=== PATIENT | female | born 1980 | race Two or more races ===

== ENCOUNTER 2017-10-16 18:13 | Emergency (ER) | payer OTHER ==
[2017-10-16 18:22] VITALS: BP 139/79; PULSE 109; TEMP 98.6; BMI 31.9
[2017-10-16] MEDS ORDERED: predniSONE 20 MG TABLET (UD) PO ONE (18:47)
[2017-10-16] MEDS ORDERED: ALBUTEROL SO4 2.5/IPRATROPIUM 0.5 INH SOL 3 ML VIAL.NEB. NEB ONE ×3 (18:47→18:54)
[2017-10-16] MEDS ORDERED: predniSONE 20 MG TABLET (UD) ONE (18:48)
--- NOTE | 2017-10-16 18:54 | PDOC ---
History of Present Illness - General Chief Complaint: Cold Symptoms Stated Complaint: COUGHING Time Seen by Provider: 10/16/17 18:30 History Source: Patient Exam Limitations: No Limitations - History of Present Illness Initial Comments: 10/16/17 19:00 Patient came for another evaluation of persistent cough, postnasal drainage, some intermittent wheezing. Was seen by PMD 4 days ago and prescribed multiple medications including Augmentin which she has taken every day but today, which she also has taken every day, also Flovent nasal spray and Tessalon Perles which she has not found to be helpful. Patient denies fever but states cough seems to be worsening and is keeping her awake at night. States suffers from seasonal ALLERGIES and is season has been the worst. Timing/Duration: reports: getting worse Severity: reports: mild, moderate Associated Symptoms: reports: denies symptoms, earache, facial pain, fever/ chills, nasal congestion Past History - Travel Traveled outside of the country in the last 30 days: No Close contact w/someone who was outside of country & ill: No - Past Medical History Allergies/Adverse Reactions: Allergies Allergy/AdvReac Type Severity Reaction Status Date / Time No Known Allergies Allergy Verified 10/16/17 18:17 Home Medications: Ambulatory Orders Albuterol 0.083% Nebulizer Amy [Ventolin 0.083% Nebulizer Soln -] 1 neb NEB Q4H PRN #30 vial 10/16/17 Amoxicillin/Potassium Clav [Augmentin 875-125 Tablet] 1 each PO ASDIR 10/16/17 Benzonatate [Tessalon Pearls -] 100 mg PO TID 10/16/17 Fluticasone Propionate [Allergy Relief] 15.8 ml NS ASDIR 10/16/17 Loratadine [Claritin -] 10 mg PO DAILY 10/16/17 predniSONE [Deltasone -] 20 mg PO BID #8 tablet 10/16/17 COPD: No Other medical history: DENIES. - Suicide/Smoking/Psychosocial Hx Smoking History: Never smoked Respiratory Specific PMHX - Complaint Specific PMHX Bronchitis: No Pneumonia: No Review of Systems - Review of Systems Able to Perform ROS?: Yes Is the patient limited Kiswahili proficient: Yes Constitutional: Yes: Symptoms Reported, See HPI, Malaise. No: Fever HEENTM: Yes: Symptoms Reported, See HPI, Nose Congestion Respiratory: Yes: Symptoms reported, See HPI, Cough, Wheezing ABD/GI: No: Symptoms Reported Integumentary: Yes: Symptoms Reported, See HPI Neurological: No: Symptoms reported All Other Systems: Reviewed and Negative *Physical Exam - Vital Signs Last Vital Signs Temp Pulse Resp BP Pulse Ox 98.6 F 109 H 17 139/79 99 10/16/17 18:17 10/16/17 18:17 10/16/17 18:17 10/16/17 18:17 10/16/17 18:17 - Physical Exam General Appearance: Yes: Nourished, Appropriately Dressed, Apparent Distress, Mild Distress HEENT: positive: ELAINA, Normal ENT Inspection, TMs Normal, Nasal Congestion, Rhinorrhea Neck: positive: Supple, Lymphadenopathy (R). negative: Tender Respiratory/Chest: positive: Lungs Clear, Wheezing (wet cough ). negative: Respiratory Distress Gastrointestinal/Abdominal: positive: Soft. negative: Tender Musculoskeletal: positive: Normal Inspection Extremity: positive: Normal Capillary Refill, Normal Inspection Integumentary: positive: Normal Color, Dry, Warm Neurologic: positive: police matron II-XII NML intact, Fully Oriented, Alert, Normal Mood/ Affect, Normal Response, Motor Strength 5/5 Progress Note - Progress Note Progress Note: ALLERGIC rhinitis with reactive airway. Improved after DuoNeb and prednisone added to regime. Will follow-up with PMD this week *DC/Admit/Observation/Transfer Diagnosis at time of Disposition: Allergic rhinitis Qualifiers: Allergic rhinitis trigger: pollen Allergic rhinitis seasonality: seasonal Qualified Code(s): J30.1 - Allergic rhinitis due to pollen - Discharge Dispostion Disposition: HOME Condition at time of disposition: Stable Decision to Admit order: No - Prescriptions Prescriptions: Albuterol 0.083% Nebulizer Amy [Ventolin 0.083% Nebulizer Soln -] 1 neb NEB Q4H PRN #30 vial PRN Reason: Cough predniSONE [Deltasone -] 20 mg PO BID #8 tablet - Referrals Referrals: Katerina Capone MD [Primary Care Provider] - - Patient Instructions Printed Discharge Instructions: DI for Viral Upper Respiratory Infection-Child Additional Instructions: Rest, drink lots of fluids: Teas, water, soups, Pedialyte Saltwater gargles Steamy showers/seem to face break up mucus Avoid contact with others until fevers and cough resolved Lots of handwashing and good hygiene Continue [id number] medications for symptomatic relief Tylenol or Motrin for fever and pain Continue albuterol nebulizers every 4-6 hours for the next 2 days then as needed for continued cough Prednisone as directed until completed Followup with private physician in one to 2 days Return to emergency department / pediatric hospital for worsened symptoms, fevers, dehydration - Post Discharge Activity Forms/Work/School Notes: Back to Work
== END 2017-10-16 19:47 | disposition home or self-care (01) ==
LOC: JERFT 18:13
PROC: 3E0F7GC Introduction of Other Therapeutic Substance into Respiratory Tract, Via Natural or Artificial Opening (ICD-10-PCS; principal; 2017-10-16)
PROC: 3E0F7GC Introduction of Other Therapeutic Substance into Respiratory Tract, Via Natural or Artificial Opening (ICD-10-PCS; 2017-10-16)
DX: J30.1 Allergic rhinitis due to pollen (principal)
CPT/HCPCS: 94640; 99281-25; J7620

== ENCOUNTER 2018-06-15 21:43 | Emergency (ER) | payer OTHER ==
[2018-06-15] MEDS ORDERED: DIPHTH,PERTUSS(ACELL),TET 0.5 ML DISP.SYRIN IM ONE ×2 (21:53→22:13)
--- NOTE | 2018-06-15 21:53 | PDOC ---
Rapid Medical Evaluation Time Seen by Provider: 06/15/18 21:50 Medical Evaluation: Allergies Allergy/AdvReac Type Severity Reaction Status Date / Time No Known Allergies Allergy Verified 10/16/17 18:17 06/15/18 21:50 pt c/o: cut from glass bottle in her garbage unknown last tdap Pt on brief exam: 3cm lac to rt 1st digit palmar side and dip joint , from of finger distal of lac Pt ordered for: tdap pt to proceed to the ED 06/15/18 21:52 Discharge Disposition - Diagnosis Finger laceration - Referrals Referrals: Katerina Capone MD [Primary Care Provider] - - Patient Instructions - Post Discharge Activity
[2018-06-15 21:55] VITALS: BP 120/81; PULSE 89; TEMP 98.3; BMI 27.9
--- NOTE | 2018-06-15 22:34 | PDOC ---
History of Present Illness - General Chief Complaint: Laceration Stated Complaint: LACERATION Time Seen by Provider: 06/15/18 21:50 History Source: Patient Exam Limitations: No Limitations - History of Present Illness Initial Comments: 06/15/18 22:29 HISTORY OF PRESENT ILLNESS: This is a 37-year-old woman denies medical history presents emergency department for evaluation of laceration to her right index finger sustained while throwing away a bag of garbage. Patient states it was a broken Serna bottle which sliced through the bag and lacerating her right index finger on the palmar surface. Patient applied a dressing to the wounds and then came to the emergency department for immediate evaluation. Patient is right-hand dominant. No recent travel or sick contacts. PAST MEDICAL HISTORY: Denies past medical history SURGICAL HISTORY: Denies ALLERGIES: No known drug allergies REVIEW OF SYSTEMS General/Constitutional: Denies fever or chills. Denies weakness, weight change. HEENT: Denies change in vision. Denies ear pain or discharge. Denies sore throat. Cardiovascular: Denies chest pain or shortness of breath. Respiratory: Denies cough, wheezing, or hemoptysis. Gastrointestinal: Denies nausea, vomiting, diarrhea or constipation. Denies rectal bleeding. Genitourinary: Denies dysuria, frequency, or change in urination. Musculoskeletal: Denies joint or muscle swelling or pain. Denies neck or back pain. Skin and breasts: LAceration to right index finger. Neurologic: Denies headache, vertigo, loss of consciousness, or loss of sensation. Psychiatric: Denies depression or anxiety. Endocrine: Denies increased thirst. Denies abnormal weight change. Hematologic/Lymphatic: Denies anemia, easy bleeding, or history of blood clots. Allergic/Immunologic: Denies hives or skin allergy. Denies latex allergy. PHYSICAL EXAM General Appearance: Well-appearing, appropriately dressed. No apparent distress , no intoxication. Musculoskeletal/Extremities: Normal inspection. FAROM of all extremities, normal capillary refill. Pelvis Stable. No CVA tenderness. No tenderness to extremities, pedal edema, swelling, erythema or deformity. Integumentary: 3 cm laceration to the palmar aspect of the right index finger over the DIP. Cap refill<2 seconds. NVI Neurologic: inseam leveler II-XII intact. Fully oriented, alert. Appropriate mood/affect. Motor strength 5/5. No appreciable EOM palsy, facial droop or sensory deficit. Past History - Past Medical History Allergies/Adverse Reactions: Allergies Allergy/AdvReac Type Severity Reaction Status Date / Time No Known Allergies Allergy Verified 10/16/17 18:17 Home Medications: Ambulatory Orders NK [No Known Home Medication] 06/15/18 COPD: No - Suicide/Smoking/Psychosocial Hx Smoking History: Never smoked Have you smoked in the past 12 months: No Information on smoking cessation initiated: No *Physical Exam - Vital Signs Last Vital Signs Temp Pulse Resp BP Pulse Ox 98.3 F 89 18 120/81 100 06/15/18 21:53 06/15/18 21:53 06/15/18 21:53 06/15/18 21:53 06/15/18 21:53 Moderate Sedation - Procedure Monitoring Vital Signs: Procedure Monitoring Vital Signs Temperature 98.3 F 06/15/18 21:53 Pulse Rate 89 06/15/18 21:53 Respiratory Rate 18 06/15/18 21:53 Blood Pressure 120/81 06/15/18 21:53 O2 Sat by Pulse Oximetry (%) 100 06/15/18 21:53 Procedures - Consent Consent obtained: Verbal, From Patient - Laceration/Wound Repair Right Volar 1st digit Wound Length: 2.6 to 5.0 cm Wound Explored: clean Wound's Depth, Shape: superficial Irrigated w/ Saline: Yes Betadine Prep: Yes Anesthesia: 1% Lidocaine Amount of Anesthetic (ccs): 3 Wound Debrided: minimal Wound Repaired With: Sutures Suture Size/Type: 5:0 Number of Sutures: 6 Layer Closure: No Sterile Dressing Applied: Yes Splint Applied: Yes Sling Applied: No Progress: 06/15/18 22:37 pt tolerated well ED Treatment Course - RADIOLOGY Radiology Studies Ordered: Category Date Time Status FINGER(S) RIGHT [RAD] Stat Radiology 06/15/18 22:29 Ordered - Medications Given in the ED: ED Medications Discontinued Medications Generic Name Dose Route Start Last Admin Trade Name Freq PRN Reason Stop Dose Admin Diphtheria/Tetanus/Acell Pertussis 0.5 ml 06/15/18 21:53 06/15/18 22:17 Boostrix - IM 06/15/18 21:54 0.5 ml .ONCE ONE Administration Medical Decision Making - Medical Decision Making 06/15/18 22:29 A/P: 37-year-old woman with laceration to index finger of the right hand 3 cm linear laceration present to the palmar aspects of the DIP of the right index finger X-rays to rule out foreign body Tetanus booster Laceration repair-see procedure note for details Discharge home 06/15/18 23:04 X-rays as read by me: No foreign body present. *DC/Admit/Observation/Transfer Diagnosis at time of Disposition: Finger laceration Qualifiers: Encounter type: initial encounter Finger: index finger Damage to nail status: without damage Foreign body presence: without foreign body Laterality: right Qualified Code(s): S61.210A - Laceration without foreign body of right index finger without damage to nail, initial encounter - Discharge Dispostion Disposition: HOME Condition at time of disposition: Stable Decision to Admit order: No - Referrals Referrals: Katerina Capone MD [Primary Care Provider] - - Patient Instructions Printed Discharge Instructions: DI for Laceration Repair Additional Instructions: Keep wound clean and dry Avoid strenuous activity/exercise to create a hot or sweaty environment until sutures are removed Reapply bacitracin ointment 2 times a day until sutures are removed Return to emergency Department or private physician in 7-10 days for suture removal May use Tylenol or Motrin for pain relief Return immediately to emergency department for redness, swelling, pain, or signs of infection - Post Discharge Activity
== END 2018-06-15 23:04 | disposition home or self-care (01) ==
LOC: JERFT 21:43
PROC: 3E0234Z Introduction of Serum, Toxoid and Vaccine into Muscle, Percutaneous Approach (ICD-10-PCS; principal; 2018-06-15)
PROC: 0HQFXZZ Repair Right Hand Skin, External Approach (ICD-10-PCS; 2018-06-15)
DX: S61.210A Laceration without foreign body of right index finger without damage to nail, initial encounter (principal); W25.XXXA Contact with sharp glass, initial encounter; Y93.E9 Activity, other interior property and clothing maintenance; Y92.038 Other place in apartment as the place of occurrence of the external cause; Y99.8 Other external cause status
CPT/HCPCS: 12002-25; 73140-TC-RT-FY; 90471; 90715; 99282-25

== ENCOUNTER 2018-06-24 09:49 | Emergency (ER) | payer OTHER ==
[2018-06-24 09:58] VITALS: BP 136/54; PULSE 78; TEMP 98.6; BMI 27.9
--- NOTE | 2018-06-24 10:13 | PDOC ---
Suture Removal/Wound Check HPI - History of Present Illness Chief Complaint: Suture/Staple Removal(Here) Stated Complaint: SUTURE REMOVAL Time Seen by Provider: 06/24/18 10:11 History Source: Yes: Patient Exam Limitations: Yes: No Limitations Treated at: [facility] - Previous ED Treatment Type of procedure performed on last visit: Yes: Laceration Repair Past History - Past Medical History Allergies/Adverse Reactions: Allergies Allergy/AdvReac Type Severity Reaction Status Date / Time No Known Allergies Allergy Verified 06/24/18 09:56 Home Medications: Ambulatory Orders NK [No Known Home Medication] 06/15/18 COPD: No - Immunization History Immunization Up to Date: Yes - Suicide/Smoking/Psychosocial Hx Smoking History: Never smoked Have you smoked in the past 12 months: No Hx Alcohol Use: No Drug/Substance Use Hx: No Suture Removal/Wound Check PE - Physical Exam Laceration/Wound Check Symptoms: reports: None Current Severity Level: None Maximum Severity Level: None Pain Localization: None *Physical Exam - Vital Signs Last Vital Signs Temp Pulse Resp BP Pulse Ox 98.6 F 78 16 136/54 L 100 06/24/18 09:51 06/24/18 09:51 06/24/18 09:51 06/24/18 09:51 06/24/18 09:51 - Physical Exam General Appearance: Yes: Nourished, Appropriately Dressed. No: Apparent Distress Neck: negative: Tender Musculoskeletal: positive: Normal Inspection (well approximated wound to the palmar aspect of right index finger distal phalanx. Range of motion is limited secondary to stiffness but able to flex and extend at the DIP.) Extremity: positive: Normal Capillary Refill, Normal Inspection. negative: Normal Range of Motion Moderate Sedation - Procedure Monitoring Vital Signs: Procedure Monitoring Vital Signs Temperature 98.6 F 06/24/18 09:51 Pulse Rate 78 06/24/18 09:51 Respiratory Rate 16 06/24/18 09:51 Blood Pressure 136/54 L 06/24/18 09:51 O2 Sat by Pulse Oximetry (%) 100 06/24/18 09:51 Medical Decision Making - Medical Decision Making 06/24/18 12:09 5 sutures removed from wound. Steri-Strips applied patient tolerated procedure well *DC/Admit/Observation/Transfer Diagnosis at time of Disposition: Encounter for removal of sutures - Discharge Dispostion Disposition: HOME Condition at time of disposition: Stable Decision to Admit order: No - Referrals Referrals: Katerina Capone MD [Primary Care Provider] - - Patient Instructions Printed Discharge Instructions: DI for Suture Removal Additional Instructions: Rest, avoid strenuous activity or exercise until scabbing is completely resolved May use bacitracin ointment until scabbing is gone After may use vitamin E oil, poke hole in vitamin E capsule and use oil from the capsule on wound- may help resolve some of the discoloration of the scar Keep wound out of the sun for at least one year to avoid darkening of scar tissue - Post Discharge Activity Forms/Work/School Notes: Back to Work
== END 2018-06-24 10:15 | disposition home or self-care (01) ==
LOC: JERFT 09:49
DX: Z48.817 Encounter for surgical aftercare following surgery on the skin and subcutaneous tissue (principal); Z48.02 Encounter for removal of sutures
CPT/HCPCS: 99281-25

== ENCOUNTER 2018-07-08 10:02 | Emergency (ER) | payer OTHER ==
[2018-07-08 10:16] VITALS: BP 119/63; PULSE 95; TEMP 98.2; BMI 27.9
--- NOTE | 2018-07-08 10:55 | PDOC ---
History of Present Illness - General Chief Complaint: Cold Symptoms Stated Complaint: COUGH Time Seen by Provider: 07/08/18 10:29 History Source: Patient, Parent(s) Exam Limitations: No Limitations - History of Present Illness Initial Comments: 07/08/18 came to emergency department with acute onset of fevers, chills, headaches/primarily sinus, runny nose and sore throat pain since yesterday. Has used ibuprofen and [id number] medications with minimal resolved. 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 Timing/Duration: reports: getting worse Severity: reports: mild, moderate Modifying Factors: improves with: activity, coughing Associated Symptoms: reports: cough, earache, facial pain, muscle aches, nasal congestion, nasal drainage, sore throat Past History - Travel Traveled outside of the country in the last 30 days: No Close contact w/someone who was outside of country & ill: No - Past Medical History Allergies/Adverse Reactions: Allergies Allergy/AdvReac Type Severity Reaction Status Date / Time No Known Allergies Allergy Verified 06/24/18 09:56 Home Medications: Ambulatory Orders Ibuprofen 200 mg PO Q6H PRN #30 capsule 07/08/18 Oseltamivir Phosphate [Tamiflu -] 75 mg PO BID #10 capsule 07/08/18 COPD: No - Immunization History Immunization Up to Date: Yes - Suicide/Smoking/Psychosocial Hx Smoking History: Never smoked Have you smoked in the past 12 months: No Hx Alcohol Use: No Drug/Substance Use Hx: No Respiratory Specific PMHX - Complaint Specific PMHX Bronchitis: No Pneumonia: No Review of Systems - Review of Systems Able to Perform ROS?: Yes Is the patient limited Beninese proficient: Yes Constitutional: Yes: Symptoms Reported, See HPI, Fever, Malaise, Weakness HEENTM: Yes: Symptoms Reported, See HPI, Nose Congestion, Throat Pain Respiratory: Yes: Symptoms reported, See HPI, Cough. No: Wheezing Musculoskeletal: Yes: Symptoms Reported, See HPI, Joint Pain, Muscle Weakness All Other Systems: Reviewed and Negative *Physical Exam - Vital Signs Last Vital Signs Temp Pulse Resp BP Pulse Ox 98.2 F 95 H 18 119/63 98 07/08/18 10:15 07/08/18 10:15 07/08/18 10:15 07/08/18 10:15 07/08/18 10:15 - Physical Exam Comments: 07/08/18 18:30 GENERAL: [The child is awake, alert, and appropriately interactive.] EYES: [The pupils are equal, round, and reactive to light, with clear, conjunctiva.but glassy] NOSE: [The nose with clear drainage EARS: [The ear canals and tympanic membranes are congested but landmarks easily visualed ] THROAT: [The oropharynx is clear with erythema, no exudates. The mucous membranes are moist.] NECK: [The neck is supple with mildly tender adenopathy, no menigemous] CHEST: [The lungs are coarse but clear without crackles, or wheezes.] HEART: [Heart is regular rhythm, with normal S1 and S2, no murmurs.] ABDOMEN: [The abdomen is soft and nontender with normal bowel sounds. There is no organomegaly and no mass. There is no guarding or rebound.] EXTREMITIES: [Extremities are normal.] NEURO: [Behavior is normal for age.cranky but easily,m Tone is normal.] SKIN: [Skin is unremarkable without rash or swelling. There is no bruising, and there are no other signs of injury.] Moderate Sedation - Procedure Monitoring Vital Signs: Procedure Monitoring Vital Signs Temperature 98.2 F 07/08/18 10:15 Pulse Rate 95 H 07/08/18 10:15 Respiratory Rate 18 07/08/18 10:15 Blood Pressure 119/63 07/08/18 10:15 O2 Sat by Pulse Oximetry (%) 98 07/08/18 10:15 Progress Note - Progress Note Progress Note: Clinically evident consistent with influenza illness, will treat with Tamiflu *DC/Admit/Observation/Transfer Diagnosis at time of Disposition: Influenzal acute upper respiratory infection - Discharge Dispostion Disposition: HOME Condition at time of disposition: Stable Decision to Admit order: No - Prescriptions Prescriptions: Ibuprofen 200 mg PO Q6H PRN #30 capsule PRN Reason: PAIN AND FEVERS Oseltamivir Phosphate [Tamiflu -] 75 mg PO BID #10 capsule - Referrals Referrals: Katerina Capone MD [Primary Care Provider] - - Patient Instructions Printed Discharge Instructions: DI for Viral Upper Respiratory Infection -- Adult Additional Instructions: Rest, drink lots of fluids: Teas, water, soups, Pedialyte Saltwater gargles Steamy showers/seem to face break up mucus Old-fashioned treatments help! Avoid contact with others until fevers and cough resolved as this is very contagious Lots of handwashing and good hygiene Continue [id number] medications for symptomatic relief Tylenol or Motrin for fever and pain Take all of Tamiflu as directed: 1 tab every 12 hours for 5 days Followup with private physician in one to 2 days as needed or if worsening Return to emergency department for worsened symptoms, fevers, dehydration Influenza takes between 5 and 7 days for resolution To not participate in any activity, work, or school until fevers and cough are gone for at least one day - Post Discharge Activity Forms/Work/School Notes: Back to Work, Back to School
== END 2018-07-08 11:06 | disposition home or self-care (01) ==
LOC: JERFT 10:02
DX: J11.1 Influenza due to unidentified influenza virus with other respiratory manifestations (principal)
CPT/HCPCS: 99281-25

== ENCOUNTER 2018-08-16 12:00 | Emergency (ER) | payer OTHER ==
[2018-08-16 12:10] VITALS: BP 142/76; PULSE 117; TEMP 99.8; BMI 27.9
[2018-08-16] MEDS ORDERED: ACETAMINOPHEN 500 MG TABLET (FP) PO ONE (12:41)
--- NOTE | 2018-08-16 12:42 | PDOC ---
History of Present Illness - General Chief Complaint: Sore Throat Stated Complaint: FEVER/ COUGHING/BODYACHE Time Seen by Provider: 08/16/18 12:34 - History of Present Illness Initial Comments: 08/16/18 12:42 37-year-old female presents for evaluation of fever chills night sweats nasal congestion and cough 2 days Past History - Past Medical History Allergies/Adverse Reactions: Allergies Allergy/AdvReac Type Severity Reaction Status Date / Time No Known Allergies Allergy Verified 08/16/18 12:08 Home Medications: Ambulatory Orders Oseltamivir Phosphate [Tamiflu] 75 mg PO BID #10 capsule 08/16/18 COPD: No - Immunization History Immunization Up to Date: Yes - Suicide/Smoking/Psychosocial Hx Smoking History: Never smoked Have you smoked in the past 12 months: No Hx Alcohol Use: No Drug/Substance Use Hx: No Review of Systems - Review of Systems Constitutional: Yes: See HPI, Chills, Fever, Malaise, Night Sweats HEENTM: Yes: Nose Congestion Respiratory: Yes: Cough *Physical Exam - Vital Signs Last Vital Signs Temp Pulse Resp BP Pulse Ox 99.8 F H 117 H 18 142/76 98 08/16/18 12:08 08/16/18 12:08 08/16/18 12:08 08/16/18 12:08 08/16/18 12:08 - Physical Exam Comments: 08/16/18 12:42 HEAD: NC/AT EYES: Conjuntiva clear Ears: Canals and TM's normal NOSE: No d/c THROAT: Moist mucous membrances, oral pharanx clear, uvula midline NECK: Supple without adenopathy CARDIAC: S1 S2 LUNGS: CTA Full and Equal breath sounds ABDOMEN: Soft NT ND MS: Full ROM in all joints without edema NEUROLOGIC: No gross sensory or motor deficits, NVID SKIN: Normal color and temperature no lesions or rashes Moderate Sedation - Procedure Monitoring Vital Signs: Procedure Monitoring Vital Signs Temperature 99.8 F H 08/16/18 12:08 Pulse Rate 117 H 08/16/18 12:08 Respiratory Rate 18 08/16/18 12:08 Blood Pressure 142/76 08/16/18 12:08 O2 Sat by Pulse Oximetry (%) 98 08/16/18 12:08 Medical Decision Making - Medical Decision Making 08/16/18 13:14 Will treat her for flu. *DC/Admit/Observation/Transfer Diagnosis at time of Disposition: Influenzal acute upper respiratory infection - Discharge Dispostion Disposition: HOME Condition at time of disposition: Stable Decision to Admit order: No - Referrals - Patient Instructions Printed Discharge Instructions: Influenza Additional Instructions: Please take the Tamiflu as directed. Tylenol Motrin as directed for pain and fever. Return to the emergency room for worsening symptoms and follow-up with your primary care physician in one to 2 days for further evaluation and treatment options. - Post Discharge Activity
== END 2018-08-16 13:25 | disposition home or self-care (01) ==
LOC: JERFT 12:00
DX: J11.1 Influenza due to unidentified influenza virus with other respiratory manifestations (principal)
CPT/HCPCS: 87804; 99281-25

== ENCOUNTER 2019-07-08 12:11 | Emergency (ER) | payer OTHER ==
[2019-07-08 12:23] VITALS: BP 131/81; PULSE 102; TEMP 99.1; BMI 29.6
--- NOTE | 2019-07-08 12:43 | PDOC ---
History of Present Illness - General Chief Complaint: Sore Throat Stated Complaint: COLD SYMPTOMS Time Seen by Provider: 07/08/19 12:23 History Source: Patient Exam Limitations: No Limitations Past History - Past Medical History Allergies/Adverse Reactions: Allergies Allergy/AdvReac Type Severity Reaction Status Date / Time No Known Allergies Allergy Verified 07/08/19 12:23 Home Medications: Ambulatory Orders NK [No Known Home Medication] 07/08/19 COPD: No - Immunization History Immunization Up to Date: Yes - Psycho Social/Smoking Cessation Hx Smoking History: Never smoked Have you smoked in the past 12 months: No Hx Alcohol Use: No Drug/Substance Use Hx: No Respiratory Specific PMHX - Complaint Specific PMHX Hx Bronchitis: No Hx Pneumonia: No *Physical Exam - Vital Signs Last Vital Signs Temp Pulse Resp BP Pulse Ox 99.1 F 102 H 18 131/81 99 07/08/19 12:20 07/08/19 12:20 07/08/19 12:20 07/08/19 12:20 07/08/19 12:20 - Physical Exam General Appearance: No: Apparent Distress HEENT: positive: Nasal Congestion. negative: Muffled/Hoarse voice, Pharyngeal Erythema, Tonsillar Exudate, Tonsillar Erythema, Rhinorrhea Respiratory/Chest: positive: Lungs Clear, Normal Breath Sounds. negative: Respiratory Distress Cardiovascular: positive: Regular Rhythm, Regular Rate, S1, S2. negative: Murmur Gastrointestinal/Abdominal: positive: Soft. negative: Tender Integumentary: positive: Normal Color Neurologic: positive: Alert Medical Decision Making - Medical Decision Making 38 y/o F with no sig pmh presents with fever, cough, congestion, sore throat, headache, body aches x 4 days. Father was recently sick as well. Denies sob, cp , abd pain, n/v/d. Did not take any antipyretics today. Likely viral syndrome Patient is past 48 hr window for tamiflu treatment 07/08/19 12:40 Discharge - Discharge Information Problems reviewed: Yes Clinical Impression/Diagnosis: Viral URI Condition: Stable Disposition: HOME - Admission No - Additional Discharge Information Prescription Drug Monitoring Program (I-STOP) results: I-STOP not reviewed - Follow up/Referral - Patient Discharge Instructions Patient Printed Discharge Instructions: DI for Viral Upper Respiratory Infection -- Adult Additional Instructions: Thank you for choosing [facility]. It was a pleasure taking care of you. You have viral infection Alternate between Tylenol every 4 and Motrin every 6 hours as needed for fever Recommend rest and hydration Salt water gargles and lemon honey tea will also help Saline nasal spray, humdifier and Nedi-pot will also help with congestion Follow-up with your doctor in 2 days Return to the Emergency Department if your symptoms worsen or persist or have other concerning symptoms. - Post Discharge Activity
== END 2019-07-08 12:53 | disposition home or self-care (01) ==
LOC: JERFT 12:11
DX: J06.9 Acute upper respiratory infection, unspecified (principal); B97.89 Other viral agents as the cause of diseases classified elsewhere
CPT/HCPCS: 99281-25

== ENCOUNTER 2023-03-09 09:30 | Emergency (ER) | payer OTHER ==
[2023-03-09 09:37] VITALS: BMI 28.3
[2023-03-09] MEDS ORDERED: diphenhydrAMINE HCL 50 MG CAPSULE PO ONE (09:54)
[2023-03-09] MEDS ORDERED: DEXAMETHASONE SOD PHOSPHATE 10 MG/1 ML VIAL IM ONE (09:54)
[2023-03-09] MEDS ORDERED: DEXAMETHASONE SOD PHOSPHATE 10 MG/1 ML VIAL ONE (09:56)
[2023-03-09] MEDS ORDERED: diphenhydrAMINE HCL 25 MG CAPSULE (FP) PO ONE (09:56)
[2023-03-09 10:41] VITALS: BP 116/69; PULSE 71; RESP 14; TEMP 98.7
== END 2023-03-09 10:42 | disposition home or self-care (01) ==
LOC: JERFT 09:30
PROC: 3E023GC Introduction of Other Therapeutic Substance into Muscle, Percutaneous Approach (ICD-10-PCS; principal; 2023-03-09)
DX: R21 Rash and other nonspecific skin eruption (principal); R22.0 Localized swelling, mass and lump, head; T78.40XA Allergy, unspecified, initial encounter
CPT/HCPCS: 99284-25; J1100

== ENCOUNTER 2023-09-05 | Emergency (ER) | payer OTHER ==
[2023-09-05 00:08] VITALS: BP 137/83; PULSE 93; RESP 18; TEMP 98.5; BMI 28.6
[2023-09-05] MEDS ORDERED: methylPREDNISolone NA SUCC 125 MG/2 ML VIAL ONE (00:44)
[2023-09-05] MEDS ORDERED: FAMOTIDINE 20 MG/50 ML IVPB 20 MG/50 ML MG IVPB ONE (00:44)
[2023-09-05] MEDS: LACTATED RINGERS SOLUTION 1000 ML INFUS.BAG IV ONE (01:03)
[2023-09-05] MEDS: FAMOTIDINE 20 MG/50 ML IVPB 20 MG/50 ML MG IVPB ONE (01:03)
[2023-09-05] MEDS: methylPREDNISolone NA SUCC 125 MG/2 ML VIAL IVPUSH ONE (01:04)
[2023-09-05 01:09] LABS: BASO % 0.6 % (0-2.0); EOS % 5.2 % (0-4.5); HEMATOCRIT 37.4 % (32.4-45.2); HEMOGLOBIN 12.3 GM/dL (10.7-15.3); LYMPH % 28.6 % (8-40); MCH 28.9 pg (25.7-33.7); MCHC 32.9 g/dl (32.0-36.0); MEAN CELL VOLUME 87.8 fl (80-96); MEAN PLT VOLUME 9.1 fl (7.5-11.1); MONO % 8.5 % (3.8-10.2); NEUT % 57.1 % (42.8-82.8); PLATELET COUNT 279 10^3/uL (134-434); RBC 4.27 M/mm3 (3.60-5.2); RDW 13.8 % (11.6-15.6); WHITE BLOOD COUNT 10.8 K/mm3 (4.0-10.0)
[2023-09-05 01:56] LABS: POTASSIUM 4.1 mmol/L (3.5-5.1)
[2023-09-05 01:58] LABS: CALCIUM 8.8 mg/dL (8.5-10.1)
[2023-09-05 01:59] LABS: ALBUMIN 3.4 g/dl (3.4-5.0); BLOOD UREA NITROGEN 10.1 mg/dL (7-18)
[2023-09-05 02:02] LABS: TOT PROT 7.1 g/dl (6.4-8.2)
[2023-09-05 02:04] LABS: BILIRUBIN,TOTAL 0.5 mg/dL (0.2-1)
[2023-09-05 02:24] LABS: CREATININE 0.8 mg/dL (0.55-1.3)
[2023-09-05] MEDS ORDERED: PANTOPRAZOLE SODIUM 40 MG/100 ML BAG IVPB ONE (05:06)
[2023-09-05] MEDS ORDERED: ACETAMINOPHEN INJECTION 100 ML IVPB ONE (05:06)
[2023-09-05] MEDS: ACETAMINOPHEN 1000 MG/100 ML BAG IVPB ONE (05:24)
[2023-09-05] MEDS: PANTOPRAZOLE SODIUM 40 MG VIAL IVPUSH ONE (05:25)
[2023-09-05] MEDS ORDERED: AMOX TR/POT CLAV 875MG/125MG TABLETS (FP) PO ONE (06:07)
[2023-09-05] MEDS ORDERED: AMOX TR/POT CLAV 875MG/125MG TABLETS (FP) ONE (06:18)
== END 2023-09-05 06:27 | disposition home or self-care (01) ==
LOC: JER
PROC: 3E033GC Introduction of Other Therapeutic Substance into Peripheral Vein, Percutaneous Approach (ICD-10-PCS; principal; 2023-09-05)
PROC: 3E033GC Introduction of Other Therapeutic Substance into Peripheral Vein, Percutaneous Approach (ICD-10-PCS; 2023-09-05)
PROC: 3E033GC Introduction of Other Therapeutic Substance into Peripheral Vein, Percutaneous Approach (ICD-10-PCS; 2023-09-05)
PROC: 3E033GC Introduction of Other Therapeutic Substance into Peripheral Vein, Percutaneous Approach (ICD-10-PCS; 2023-09-05)
PROC: 3E033NZ Introduction of Analgesics, Hypnotics, Sedatives into Peripheral Vein, Percutaneous Approach (ICD-10-PCS; 2023-09-05)
DX: T78.3XXA Angioneurotic edema, initial encounter (principal); K52.9 Noninfective gastroenteritis and colitis, unspecified; R10.31 Right lower quadrant pain; Z20.822 Contact with and (suspected) exposure to COVID-19
CPT/HCPCS: 0241U-QW; 36415; 74177-TC; 76830-TC; 80053; 83690; 84703; 85025; 99285-25; J0131; Q9967

== ENCOUNTER 2023-10-31 12:56 | Emergency (ER) | payer OTHER ==
[2023-10-31 13:13] VITALS: BP 156/84; PULSE 81; RESP 18; TEMP 98; BMI 29.1
[2023-10-31] MEDS ORDERED: ALBUTEROL SO4 2.5/IPRATROPIUM 0.5 INH SOL 3 ML VIAL.NEB. NEB ONE (14:16)
[2023-10-31] MEDS ORDERED: DEXAMETHASONE SOD PHOSPHATE 10 MG/1 ML VIAL ONE (14:16)
[2023-10-31] MEDS: ALBUTEROL SO4 2.5/IPRATROPIUM 0.5 INH SOL 3 ML VIAL.NEB. NEB ONE (14:19)
[2023-10-31] MEDS: DEXAMETHASONE SOD PHOSPHATE 10 MG/1 ML VIAL PO ONE (14:19)
== END 2023-10-31 14:52 | disposition home or self-care (01) ==
LOC: JERFT 12:56
PROC: 3E0F7GC Introduction of Other Therapeutic Substance into Respiratory Tract, Via Natural or Artificial Opening (ICD-10-PCS; principal; 2023-10-31)
DX: J40 Bronchitis, not specified as acute or chronic (principal); R05.9 Cough, unspecified; J04.0 Acute laryngitis
CPT/HCPCS: 71046-TC-FY; 99283-25; J1100